=== PATIENT | female | born 2000 | race Caucasian/White ===

== ENCOUNTER → 2022-12-24 11:40 | Outpatient (BNVA) | payer OTHER, SELFPAY | PROVIDERS: PCP Internal Medicine; Referring Provider Nurse Practitioner Family; Visit Provider Psychiatry & Neurology Neurology | DX: R56.9 Unspecified convulsions (principal); R51.9 Headache, unspecified; G43.019 Migraine without aura, intractable, without status migrainosus | CPT/HCPCS: 36415; 80053; 82306; 82607; 82746; 83735; 83921; 84439; 84443; 84481; 85025 ==